=== PATIENT | female | born 1970 | race Caucasian/White ===

== ENCOUNTER 2017-01-10 23:14 | Emergency (ER) | payer SELFPAY | END 2017-01-10 23:53 | disposition left against medical advice (07) | LOC: ED 23:14 | DX: Z53.21 Procedure and treatment not carried out due to patient leaving prior to being seen by health care provider (principal) ==

== ENCOUNTER 2017-01-11 19:24 | Emergency (ER) | payer SELFPAY | END 2017-01-11 20:26 | disposition left against medical advice (07) | LOC: ED 19:24 | DX: Z53.21 Procedure and treatment not carried out due to patient leaving prior to being seen by health care provider (principal) ==

== ENCOUNTER 2017-01-13 21:42 | Emergency (ER) | payer SELFPAY ==
[2017-01-13 21:57] VITALS: BP 137/80
== END 2017-01-14 01:06 | disposition left against medical advice (07) ==
LOC: ED 21:42
DX: Z53.21 Procedure and treatment not carried out due to patient leaving prior to being seen by health care provider (principal)

== ENCOUNTER 2017-01-18 09:16 | Emergency (ER) | payer MEDICAID ==
[~2017-01-18] VITALS: Ht 167.6 cm; Wt 81.6 kg
[2017-01-18 12:54] VITALS: BP 120/75
== END 2017-01-18 12:54 | disposition home or self-care (01) ==
LOC: ED 09:16
DX: G43.909 Migraine, unspecified, not intractable, without status migrainosus (principal); F32.9 Major depressive disorder, single episode, unspecified; E07.9 Disorder of thyroid, unspecified; Z91.419 Personal history of unspecified adult abuse
CPT/HCPCS: J0780; J1200; J1885; J7030

== ENCOUNTER 2017-01-26 14:16 | Emergency (ER) | payer MEDICAID ==
[2017-01-26 15:23] VITALS: BP 129/81
== END 2017-01-26 15:23 | disposition home or self-care (01) ==
LOC: ED 14:16
DX: M54.5 Low back pain (principal); Z88.5 Allergy status to narcotic agent; E07.9 Disorder of thyroid, unspecified
CPT/HCPCS: J1885

== ENCOUNTER 2017-03-02 17:35 | Emergency (ER) | payer MEDICAID | END 2017-03-02 18:25 | disposition home or self-care (01) | LOC: ED 17:35 | DX: Z76.0 Encounter for issue of repeat prescription (principal); R03.0 Elevated blood-pressure reading, without diagnosis of hypertension; F31.9 Bipolar disorder, unspecified; F19.20 Other psychoactive substance dependence, uncomplicated ==

== ENCOUNTER 2017-05-06 02:57 | Emergency (ER) | payer OTHER ==
[2017-05-06 05:54] VITALS: BP 158/100
== END 2017-05-06 05:50 | disposition home or self-care (01) ==
LOC: ED 02:57
DX: S39.012A Strain of muscle, fascia and tendon of lower back, initial encounter (principal); M54.31 Sciatica, right side; X58.XXXA Exposure to other specified factors, initial encounter; Y93.89 Activity, other specified; Y99.8 Other external cause status; Y92.89 Other specified places as the place of occurrence of the external cause
CPT/HCPCS: J1885

== ENCOUNTER 2017-05-13 06:50 | Emergency (ER) | payer OTHER ==
[~2017-05-13] VITALS: Ht 167.6 cm; Wt 81.6 kg
[2017-05-13 10:16] VITALS: BP 120/64
== END 2017-05-13 10:16 | disposition home or self-care (01) ==
LOC: ED 06:50
DX: M54.31 Sciatica, right side (principal); F31.9 Bipolar disorder, unspecified; Z88.5 Allergy status to narcotic agent
CPT/HCPCS: J1885

== ENCOUNTER 2017-06-08 06:09 | Emergency (ER) | payer OTHER ==
[2017-06-08 07:16] VITALS: BP 162/62
== END 2017-06-08 07:16 | disposition other institution (70) ==
LOC: ED 06:09
DX: J02.9 Acute pharyngitis, unspecified (principal); F31.9 Bipolar disorder, unspecified; Z88.5 Allergy status to narcotic agent

== ENCOUNTER 2017-08-19 22:06 | Emergency (ER) | payer OTHER ==
[~2017-08-19] VITALS: Ht 160 cm; Wt 65.8 kg
[2017-08-19 22:20] VITALS: Ht 160 cm; Wt 65.8 kg
[2017-08-19 22:45] LABS: PLATELET COUNT 376 x10^3mcL (130-400); RED CELL DISTRIBUTION WIDTH 13.4 % (11.5-14.5)
[2017-08-19 22:48] LABS: BASOPHIL % 2.4 % (0-2)
[2017-08-19 23:04] LABS: CALCIUM 8.8 mg/dL (8.5-10.1); CHLORIDE SERUM 103 mmol/L (98-107); CREATININE SERUM 0.7 mg/dL (0.6-1.0); GFR1 > 60 mL/min; GLUCOSE SERUM 106 mg/dL (74-106); POTASSIUM SERUM 3.6 mmol/L (3.5-5.1); SODIUM SERUM 138 mmol/L (136-145)
[2017-08-19 23:09] LABS: ALKALINE PHOSPHATASE 105 U/L (46-116); ALT/SGPT 23 U/L (14-59); AST/SGOT 18 U/L (15-37); BILIRUBIN TOTAL 0.2 mg/dL (0.20-1.00); TOTAL PROTEIN, SERUM 6.7 g/dL (6.4-8.2)
[2017-08-19 23:10] LABS: ALBUMIN 2.9 g/dL (3.4-5.0)
[2017-08-19 23:30] LABS: AMPHETAMINE QUAL UR POSITIVE (NEG <=1000)
[2017-08-20 03:03] VITALS: BP 100/64
== END 2017-08-20 03:03 ==
LOC: ED 22:06
PROVIDERS: Emergency Medicine
DX: T43.622A Poisoning by amphetamines, intentional self-harm, initial encounter (principal); Y92.89 Other specified places as the place of occurrence of the external cause; Z88.5 Allergy status to narcotic agent
CPT/HCPCS: 36415; G0480